=== PATIENT | female | born 1980 | race Caucasian/White ===

== ENCOUNTER 2017-05-20 15:21 | Emergency (ER) | payer SELFPAY ==
[2017-05-20 15:44] VITALS: BP 110/78
--- NOTE | 2017-05-20 16:23 | EDM.PDOC ---
ED HPI GENERAL MEDICAL PROBLEM - General Chief Complaint: Head Injury Stated Complaint: MEMORY LOSS, PRESSURE IN HEAD AFTER FALL FROM 05/13 Time Seen by Provider: 05/20/17 16:04 Source of Information: Reports: Patient, RN Notes Reviewed History Limitations: Reports: No Limitations - History of Present Illness INITIAL COMMENTS - FREE TEXT/NARRATIVE: 36-year-old female presents emergency department today following head trauma one week ago, she admits to alcohol consumption had fallen multiple times that evening hit her head on a barstool that she does not believe she had loss of consciousness but since the event happened she's had increasing head pressure and pain [id number] pain medications provided little relief for her does have nausea no vomiting does have history of Areli procedure Head Pain Score (Numeric/FACES): 6 - Related Data Allergies Allergy/AdvReac Type Severity Reaction Status Date / Time ketorolac tromethamine Allergy Severe Anaphylactic Verified 01/03/16 14:25 [From Toradol] Shock amoxicillin [Amoxicillin] Allergy Itching Verified 01/03/16 14:25 hydrocodone bitartrate Allergy Itching Verified 01/03/16 14:25 [From Vicodin] Home Meds: Home Meds NK [No Known Home Meds] 05/20/17 [History] Past Medical History HEENT History: Reports: Impaired Vision Gastrointestinal History: Reports: GERD 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: , Other (See Below) Other OB/BYN History: cervical cancer Neurological History: Reports: Concussion, Migraines Psychiatric History: Reports: Bipolar, Depression, Psych Hospitalization(s), Suicide Attempt, Other (See Below) Other Psychiatric History: borderline personality disorder, manic depression Oncologic (Cancer) History: Reports: Cervix - Past Surgical History Head Surgeries/Procedures: Reports: None HEENT Surgical History: Reports: Tonsillectomy GI Surgical History: Reports: Cholecystectomy, Areli Fundoplication Female Surgical History: Reports: Tubal Ligation, Other (See Below) Social & Family History - Family History HEENT: Reports: Otitis Media Other HEENT Family History: EAR TUBES Cardiac: Reports: None Respiratory: Reports: None GI: Reports: None : Reports: None OBGYN: Reports: None Musculoskeletal: Reports: None Neurological: Reports: None Psychiatric: Reports: None Endocrine/Metabolic: Reports: Diabetes, type II Hematologic: Reports: None Immunologic: Reports: None Oncologic: Reports: Breast, Other (See Below) Other Oncologic Family History: MLTIPLE MYELOMA - Tobacco Use Smoking Status *Q: Heavy Tobacco Smoker Years of Tobacco use: 25 Packs/Tins Daily: 0.5 Used Tobacco, but Quit: No Month Tobacco Last Used: JUNE Second Hand Smoke Exposure: Yes - Caffeine Use Caffeine Use: Reports: Coffee, Soda - Alcohol Use Days Per Week of Alcohol Use: 0 Number of Drinks Per Day: 4 Total Drinks Per Week: 0 - Recreational Drug Use Recreational Drug Use: No Drug Use in Last 12 Months: No Recreational Drug Type: Reports: Methamphetamine Recreational Drug Use Frequency: Not Used In Over 6 Months Recreational Drug Last Use: 2008 - Living Situation & Occupation Living situation: Reports: Single Occupation: Employed ED ROS GENERAL - Review of Systems Review Of Systems: See Below Constitutional: Reports: No Symptoms HEENT: Reports: No Symptoms Respiratory: Reports: No Symptoms Cardiovascular: Reports: No Symptoms GI/Abdominal: Reports: Nausea : Reports: No Symptoms Musculoskeletal: Reports: No Symptoms Skin: Reports: No Symptoms Neurological: Reports: Headache ED EXAM, HEAD INJURY - Physical Exam Exam: See Below Text/Narrative:: General: Female, not in any distress, alert and oriented x3 HEENT: head is atraumatic normocephalic, eyes pupils equal round reactive to light, sclera clear no conjunctivitis appreciated. Ears tympanic membranes clear and allen landmarks and light reflex are present bilaterally canals are clear. Nose no septal deviation, nares are clear, no blood present. Mouth mucosa is moist and pink no erythema or exudate noted in soft palate, tongue is midline uvula is midline, dentition is intact. Neck: Supple no thyromegaly no tracheal deviation. No tenderness spinally or paraspinally full range of motion without pain Nodes: Cervical nodes subclavicular nodes nontender no palpable lymphadenopathy noted. Lungs: clear to auscultation bilaterally with symmetrical respirations, no adventitious noise appreciated. CV: Regular rate and rhythm S1 and S2 appreciated no murmurs rubs or gallops noted. Abdomen: Soft, nontender, no palpable masses or organomegaly appreciated, no distention no guarding bowel sounds are present, . Neuro: Cranial nerves II through XII grossly intact, power is 5 out 5 in upper and lower extremities, patellar reflex, biceps reflex +2 can do finger to nose without difficulty no dysdiadochokinesis no difficulty with rapid alternating movements can do [id number] without difficulty Romberg is negative, has adequate gait can do heel to toe, can toe walk and heel walk no cerebellar dysfunction no focal neurologic deficit Skin: Warm and dry, intact Extremities: No lower extremity edema appreciated, Course - Vital Signs Last Recorded V/S: Last Vital Signs Temp 96.8 F 05/20/17 15:42 Pulse 73 05/20/17 15:42 Resp 16 05/20/17 15:42 BP 110/78 05/20/17 15:42 Pulse Ox 98 05/20/17 15:42 - Orders/Labs/Meds Orders: Active Orders 24 hr Category Date Time Status Head wo Cont [CT] Stat Exams 05/20/17 16:18 Taken Departure - Departure Time of Disposition: 17:40 Disposition: Home, Self-Care 01 Condition: Good Clinical Impression: Concussion Qualifiers: Encounter type: initial encounter Loss of consciousness presence/duration: with LOC of unspecified duration Qualified Code(s): S06.0X9A - Concussion with loss of consciousness of unspecified duration, initial encounter - Discharge Information Referrals: PCP,None [Primary Care Provider] - Forms: ED Department Discharge Additional Instructions: , Use tramadol as needed for pain control, physical therapy will call you set up appointment time at your convenience, Please followup with your primary care provider in 5-7 days if not better, please call return to the emergency department with worsening of symptoms. - My Orders Last 24 Hours: My Active Orders 05/20/17 16:18 Head wo Cont [CT] Stat - Assessment/Plan Last 24 Hours: My Active Orders 05/20/17 16:18 Head wo Cont [CT] Stat Plan: Assessment Acuity = acute Site and laterality = concussion syndrome Etiology = secondary to head trauma Manifestations = none Location of injury = Home Lab values = CT scan initially showed question of trace subdural however after discussion with the radiologist felt this was more likely artifact Plan I did review CT scan results with the patient felt her symptoms are more consistent with concussion syndrome therefore I wrote an order for physical therapy for evaluation and treatment, prescription written for tramadol 1 tablet by mouth 3 times a day when necessary total #20 follow-up with primary care 5-7 days if no improvement Patient was in agreement with the plan all questions were answered, they were instructed to return to the emergency department or call for worsening symptoms. This note was dictated using dragon voice recognition software please call with any questions.
== END 2017-05-20 17:50 | disposition home or self-care (01) ==
LOC: JP.ED 15:21
DX: S06.0X9A Concussion with loss of consciousness of unspecified duration, initial encounter (principal); K21.9 Gastro-esophageal reflux disease without esophagitis; F31.9 Bipolar disorder, unspecified; F17.210 Nicotine dependence, cigarettes, uncomplicated; Z88.1 Allergy status to other antibiotic agents; Z88.5 Allergy status to narcotic agent; Z88.6 Allergy status to analgesic agent; W01.190A Fall on same level from slipping, tripping and stumbling with subsequent striking against furniture, initial encounter
CPT/HCPCS: 70450; 99283; 99284-25

== ENCOUNTER 2018-11-30 14:23 | Emergency (ER) | payer SELFPAY ==
--- NOTE | 2018-11-30 15:21 | EDM.PDOC ---
ED HPI GENERAL MEDICAL PROBLEM - General Chief Complaint: Chest Pain Stated Complaint: CHEST PAINS, PRESURE, LEFT ARM PAIN AND NUMBNESS Time Seen by Provider: 11/30/18 14:40 Source of Information: Reports: Patient History Limitations: Reports: No Limitations - History of Present Illness INITIAL COMMENTS - FREE TEXT/NARRATIVE: 38-year-old female, otherwise healthy was going to bed last evening when she felt a fairly sudden onset of pain in her chest radiating through to her back. She was unable to breathe for a while because it was painful, but it slowly improved to the point where she went to sleep. This morning when she awoke she was still having some slight pressure and she felt "off". There was a persistent annoying pain in her chest that she took some ibuprofen, it didn't seem to help. This afternoon she felt like she wasn't thinking clearly, the chest pain started recurring and then her left hand went numb in her left leg felt weak, she then developed oral numbness in her lips on both sides. She then panicked and called someone to come in and take over work and came into the emergency room. She arrived very stable, normal vitals and sinus rhythm. Still some slight pressure, some slight weakness in her left leg and some slight numbness on her face and hand but she looks very calm. Her history is a year and a half ago she slipped on the ice and hit her head and sustained a head bleed, concussion and skull fracture according to the patient. Onset: Sudden (Chest pressure started suddenly last night about 16 hours ago) Associated Symptoms: Reports: Malaise. Denies: Fever/Chills, Headaches, Loss of Appetite Chest Pain Score (Numeric/FACES): 6 - Related Data Allergies Allergy/AdvReac Type Severity Reaction Status Date / Time ketorolac tromethamine Allergy Severe Anaphylactic Verified 11/30/18 14:46 [From Toradol] Shock amoxicillin [Amoxicillin] Allergy Itching Verified 11/30/18 14:46 hydrocodone bitartrate Allergy Itching Verified 11/30/18 14:46 [From Vicodin] Home Meds: Home Meds NK [No Known Home Meds] 05/20/17 [History] Past Medical History HEENT History: Reports: Impaired Vision Cardiovascular History: Reports: None Respiratory History: Reports: None Gastrointestinal History: Reports: GERD 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: , Other (See Below) 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 Musculoskeletal History: Reports: None Neurological History: Reports: Concussion, Migraines Psychiatric History: Reports: Bipolar, Depression, Psych Hospitalization(s), Suicide Attempt, Other (See Below) Other Psychiatric History: borderline personality disorder, manic depression Endocrine/Metabolic History: Reports: None Hematologic History: Reports: None Immunologic History: Reports: None Oncologic (Cancer) History: Reports: Cervix Dermatologic History: Reports: None - Past Surgical History HEENT Surgical History: Reports: Tonsillectomy GI Surgical History: Reports: Cholecystectomy, Areli Fundoplication Social & Family History - Family History HEENT: Reports: Otitis Media Other HEENT Family History: EAR TUBES Cardiac: Reports: None Respiratory: Reports: None GI: Reports: None : Reports: None OBGYN: Reports: None Musculoskeletal: Reports: None Neurological: Reports: None Psychiatric: Reports: None Endocrine/Metabolic: Reports: Diabetes, type II Hematologic: Reports: None Immunologic: Reports: None Oncologic: Reports: Breast, Other (See Below) Other Oncologic Family History: MLTIPLE MYELOMA - Tobacco Use Smoking Status *Q: Light Tobacco Smoker Years of Tobacco use: 30 Packs/Tins Daily: 0.5 - Caffeine Use Caffeine Use: Reports: Coffee, Soda - Recreational Drug Use Recreational Drug Use: No - Living Situation & Occupation Living situation: Reports: Single Occupation: Employed ED ROS GENERAL - Review of Systems Review Of Systems: See Below Constitutional: Reports: Malaise. Denies: Fever, Chills HEENT: Denies: Hearing Loss, Vision Change Respiratory: Reports: Pleuritic Chest Pain. Denies: Shortness of Breath Cardiovascular: Reports: Chest Pain. Denies: Palpitations GI/Abdominal: Denies: Abdominal Pain, Nausea, Vomiting : Reports: No Symptoms Musculoskeletal: Reports: No Symptoms Neurological: Reports: Paresthesia (Lips, left arm and left leg). Denies: Seizure, Syncope Psychiatric: Reports: Anxiety ED EXAM, GENERAL - Physical Exam Exam: See Below Exam Limited By: No Limitations General Appearance: Alert, No Apparent Distress, Other (Generally the patient appears grossly completely normal, EOMs intact, speech clear and not hyperventilating) Eye Exam: Bilateral Eye: Normal Inspection Throat/Mouth: Normal Inspection Head: Atraumatic Neck: Supple, Non-Tender Respiratory/Chest: No Respiratory Distress, Lungs Clear Cardiovascular: Regular Rate, Rhythm. No: Tachycardia GI/Abdominal: Soft Extremities: Other (Effort is questionable, but plantar flexion of the left foot is weaker compared to the right) Neurological: Sensory/Motor Deficit (Some objective weakness of plantar flexion of the left foot compared to the right, and a lack of coordination when grasping with the left hand compared to the right). No: Inattentive, Confused, Disoriented, Slow to Respond, Unresponsive Course - Vital Signs Last Recorded V/S: Last Vital Signs Temp 98 F 11/30/18 14:50 Pulse 65 11/30/18 15:44 Resp 20 11/30/18 15:44 BP 120/54 L 11/30/18 15:44 Pulse Ox 96 11/30/18 15:44 - Orders/Labs/Meds Labs: Laboratory Tests 11/30/18 11/30/18 Range/Units 13:10 13:10 WBC 8.0 (4.5-11.0) K/uL RBC 4.12 (3.30-5.50) M/uL Hgb 13.1 (12.0-15.0) g/dL Hct 39.3 (36.0-48.0) % MCV 95 (80-98) fL MCH 32 H (27-31) pg MCHC 33 (32-36) % Plt Count 195 (150-400) K/uL Neut % (Auto) 45 (36-66) % Lymph % (Auto) 44 (24-44) % Woods % (Auto) 7 H (2-6) % Eos % (Auto) 2 (2-4) % Baso % (Auto) 1 (0-1) % Sodium 140 (140-148) mmol/L Potassium 3.7 (3.6-5.2) mmol/L Chloride 107 (100-108) mmol/L Carbon Dioxide 25 (21-32) mmol/L Anion Gap 8.5 (5.0-14.0) mmol/L BUN 13 (7-18) mg/dL Creatinine 0.7 D (0.6-1.0) mg/dL Est Cr Clr Drug Dosing 95.13 mL/min Estimated GFR (MDRD) > 60 (>60) Glucose 95 (74-106) mg/dL Calcium 8.4 L (8.5-10.1) mg/dL Total Bilirubin 0.7 (0.2-1.0) mg/dL AST 17 (15-37) U/L ALT 26 (12-78) U/L Alkaline Phosphatase 79 (46-116) U/L Troponin I < 0.017 (0.000-0.056) ng/mL Total Protein 6.3 L (6.4-8.2) g/dL Albumin 3.1 L (3.4-5.0) g/dL Globulin 3.2 (2.3-3.5) g/dL Albumin/Globulin Ratio 1.0 L (1.2-2.2) TSH, Ultra Sensitive 1.923 (0.358-3.740) uIU/mL - Re-Assessments/Exams Free Text/Narrative Re-Assessment/Exam: 11/30/18 15:21 Reviewed the patient's records and was reassured that her initial CT scan from a urinary half ago showed no fracture and the questionable hemorrhage is likely artifact. An EKG was done which was normal. A CBC, CMP and TSH along with troponin were obtained, a 2 view chest x-ray and a head CT without contrast. 11/30/18 15:55 CBC CMP and TSH were all basically normal including a 0 troponin. Two-view chest x-ray was negative and CT of her head was negative. She did admit that she is currently going through a custody may with her for her kids so I think this is at least partially stress-induced or anxiety. She is going to take a day off work, increase activity as tolerated and recheck in 2-3 days if not improving satisfactorily. Departure - Departure Time of Disposition: 16:07 Disposition: Home, Self-Care 01 Clinical Impression: Atypical chest pain, Paresthesia of left upper and lower extremity - Discharge Information Instructions: Nonspecific Chest Pain, [id number] Referrals: PCP,None [Primary Care Provider] - Forms: ED Department Discharge Care Plan Goals: Rest the next 1-2 days and increase activity as tolerated. Return anytime if worsening or concerns, or consider rechecking in 2-3 days if not improving satisfactorily.
[2018-11-30 15:45] VITALS: BP 120/54
--- NOTE | 2018-11-30 16:36 | CRLCT ---
INDICATION: Left-sided weakness and paresthesias. TECHNIQUE: CT head without contrast. COMPARISON: Head CT 05/20/2017 FINDINGS: CSF spaces: Within normal limits for age. Brain parenchyma: The allen-white differentiation is normal. No sign of mass, hemorrhage, or midline shift. Skull base and calvarium: The visualized paranasal sinuses and mastoid air cells demonstrate no acute or significant findings. The visualized orbits are grossly unremarkable. No skull fractures. IMPRESSION: Unremarkable noncontrast head CT. Please note that all CT scans at this facility use dose modulation, iterative reconstruction, and/or weight-based dosing when appropriate to reduce radiation dose to as low as reasonably achievable. Dictated by Elton Anderson MD @ Nov 30 2018 4:32PM Signed by Dr. Elton Anderson @ Nov 30 2018 4:34PM
--- NOTE | 2018-11-30 16:53 | CRLCR ---
Indication: Dyspnea Technique: Chest 2 views Comparison: None Findings: Cardiovascular and mediastinum: Heart size and vasculature are normal in caliber and appearance. Lungs and pleural spaces: Lungs are clear. No sign of infiltrate or mass. No sign of pleural effusion. No pneumothorax. Bones and soft tissues: No significant findings. Impression: No acute or significant findings. Dictated by Elton Anderson MD @ Nov 30 2018 4:48PM Signed by Dr. Elton Anderson @ Nov 30 2018 4:50PM
== END 2018-11-30 16:07 | disposition home or self-care (01) ==
LOC: JP.ED 14:23
DX: R07.89 Other chest pain (principal); R20.2 Paresthesia of skin; F17.210 Nicotine dependence, cigarettes, uncomplicated; Z88.5 Allergy status to narcotic agent; Z88.1 Allergy status to other antibiotic agents
CPT/HCPCS: 36415; 70450; 71046; 80053; 84443; 84484; 85025; 93005; 93010; 99284; 99285-25

== ENCOUNTER 2020-09-04 23:47 | Emergency (ER) | payer SELFPAY ==
[2020-09-04 23:59] VITALS: BP 107/65; PULSE 63
--- NOTE | 2020-09-05 00:17 | EDM.PDOC ---
ED HPI GENERAL MEDICAL PROBLEM - General Chief Complaint: Lower Extremity Injury/Pain Stated Complaint: RIGHT FOOT PAIN Time Seen by Provider: 09/05/20 00:05 Source of Information: Reports: Patient, RN History Limitations: Reports: No Limitations - History of Present Illness INITIAL COMMENTS - FREE TEXT/NARRATIVE: 39 yo female presents with R lateral foot pain progressive over several weeks. Pain is worse with weight bearing. Has not been to the clinic. No injury recalled. Onset: Gradual Duration: Week(s):, Getting Worse Location: Reports: Lower Extremity, Right Quality: Reports: Ache Severity: Moderate Improves with: Reports: Rest Worsens with: Reports: Other (weight bearing) Context: Reports: Other (see HPI) Associated Symptoms: Reports: No Other Symptoms Treatments DIRECTOR COLLEGE: Reports: Other (see below) (none) Right Foot Pain Score (Numeric/FACES): 8 - Related Data Allergies Allergy/AdvReac Type Severity Reaction Status Date / Time ketorolac tromethamine Allergy Severe Anaphylactic Verified 09/05/20 00:00 [From Toradol] Shock amoxicillin [Amoxicillin] Allergy Itching Verified 11/30/18 14:46 hydrocodone bitartrate Allergy Itching Verified 11/30/18 14:46 [From Vicodin] Home Meds: Home Meds NK [No Known Home Meds] 05/20/17 [History] Past Medical History HEENT History: Reports: Impaired Vision Cardiovascular History: Reports: None Respiratory History: Reports: None Gastrointestinal History: Reports: GERD 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: , 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 (See Below) 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 Musculoskeletal History: Reports: Fracture Other Musculoskeletal History: toe fx Neurological History: Reports: Concussion, Migraines Psychiatric History: Reports: Bipolar, Depression, Psych Hospitalization(s), Suicide Attempt, Other (See Below) Other Psychiatric History: borderline personality disorder, manic depression Endocrine/Metabolic History: Reports: None Hematologic History: Reports: None Immunologic History: Reports: None Oncologic (Cancer) History: Reports: Cervix Dermatologic History: Reports: None - Past Surgical History HEENT Surgical History: Reports: Tonsillectomy GI Surgical History: Reports: Cholecystectomy, Areli Fundoplication Female Surgical History: Reports: Tubal Ligation, Other (See Below) Other Female Surgeries/Procedures: cervical cancer Social & Family History - Family History HEENT: Reports: Otitis Media Other HEENT Family History: EAR TUBES Cardiac: Reports: None Respiratory: Reports: None GI: Reports: None : Reports: None OBGYN: Reports: None Musculoskeletal: Reports: None Neurological: Reports: None Psychiatric: Reports: None Endocrine/Metabolic: Reports: Diabetes, type II Hematologic: Reports: None Immunologic: Reports: None Oncologic: Reports: Breast, Other (See Below) Other Oncologic Family History: MLTIPLE MYELOMA - Tobacco Use Tobacco Use Status *Q: Current Every Day Tobacco User Years of Tobacco use: 25 Packs/Tins Daily: 0.5 Used Tobacco, but Quit: No Second Hand Smoke Exposure: Yes - Caffeine Use Caffeine Use: Reports: Coffee, Soda - Recreational Drug Use Recreational Drug Use: No - Living Situation & Occupation Living situation: Reports: Single Occupation: Employed Review of Systems - Review of Systems Review Of Systems: See Below Constitutional: Reports: No Symptoms Eyes: Reports: No Symptoms Musculoskeletal: Reports: Foot Pain (R lateral) Skin: Reports: No Symptoms Neurological: Reports: No Symptoms ED EXAM, GENERAL - Physical Exam Exam: See Below Exam Limited By: No Limitations General Appearance: Alert, WD/WN, No Apparent Distress Extremities: Normal Inspection, Normal Range of Motion, No Pedal Edema. No: Non-Tender (tender laterally), Pedal Edema, Limited Range of Motion, Increased Warmth, Redness Neurological: Alert, Oriented, CN II-XII Intact, Normal Cognition, No Motor/Sensory Deficits Psychiatric: Normal Affect, Normal Mood Skin Exam: Warm, Dry, Intact, Normal Color, No Rash Course - Vital Signs Last Recorded V/S: Last Vital Signs Temp 36.3 C 09/04/20 23:58 Pulse 63 09/04/20 23:58 Resp 16 09/04/20 23:58 BP 107/65 09/04/20 23:58 Pulse Ox 97 09/04/20 23:58 - Orders/Labs/Meds Orders: Active Orders 24 hr Category Date Time Status Foot Comp Min 3V Rt [CR] Stat Exams 09/05/20 00:13 Ordered - Radiology Interpretation Free Text/Narrative:: R foot X-ray-neg Departure - Departure Time of Disposition: 00:40 Disposition: Home, Self-Care 01 Condition: Fair Clinical Impression: Right foot pain - Discharge Information *PRESCRIPTION DRUG MONITORING PROGRAM REVIEWED*: No *COPY OF PRESCRIPTION DRUG MONITORING REPORT IN PATIENT QUINTIN: No Instructions: Foot Pain Referrals: PCP,None [Primary Care Provider] - Forms: ED Department Discharge Additional Instructions: Stay off the right foot as much as possible. F/U with podiatry for definitive treatment. Sepsis Event Note (ED) - Evaluation Sepsis Screening Result: No Definite Risk - Focused Exam Vital Signs: Vital Signs Temp Pulse Resp BP Pulse Ox 09/04/20 23:58 36.3 C 63 16 107/65 97 - My Orders Last 24 Hours: My Active Orders 09/05/20 00:13 Foot Comp Min 3V Rt [CR] Stat - Assessment/Plan Last 24 Hours: My Active Orders 09/05/20 00:13 Foot Comp Min 3V Rt [CR] Stat
--- NOTE | 2020-09-05 09:03 | CR ---
FOOT RIGHT 3 views CLINICAL HISTORY:Right lateral foot pain FINDINGS:There is a longitudinal regular lucency and mild cortical irregularity at the base of the fifth metatarsal. This is likely related to secondary ossification center but the patient does have right lateral foot pain. IMPRESSION: Deformity at the base of the fifth metatarsal is most likely secondary ossification center but the patient does have lateral foot pain. If clinical symptomatology persists or worsens a repeat exam is recommended.
== END 2020-09-05 00:47 | disposition home or self-care (01) ==
LOC: JP.ED 23:47
DX: M79.671 Pain in right foot (principal); Z72.0 Tobacco use; Z88.5 Allergy status to narcotic agent; Z88.0 Allergy status to penicillin
CPT/HCPCS: 73630-26-RT; 73630-RT; 99282; 99283

== ENCOUNTER 2021-06-08 15:54 | Emergency (ER) | payer MEDICAID ==
[2021-06-08 16:12] VITALS: BP 107/68; PULSE 80
--- NOTE | 2021-06-08 16:27 | EDM.PDOC ---
ED HPI GENERAL MEDICAL PROBLEM - General Chief Complaint: Lower Extremity Injury/Pain Stated Complaint: POST SURGICAL BLEEDING-R ANKLE Time Seen by Provider: 06/08/21 16:05 Source of Information: Reports: Patient, RN History Limitations: Reports: No Limitations - History of Present Illness INITIAL COMMENTS - FREE TEXT/NARRATIVE: 40 yo female had R ankle surgery yesterday in [place] by an orthopedic surgeon. Today she had bloody drainage from the wound medially and laterally that she thought was more than what she was expecting. She called [place] and no one was there to answer the phone. Eventually someone advised her to come to the ER. 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) (none) Right Ankle Pain Score (Numeric/FACES): 7 - Related Data Allergies Allergy/AdvReac Type Severity Reaction Status Date / Time ketorolac tromethamine Allergy Severe Anaphylactic Verified 06/08/21 16:13 [From Toradol] Shock amoxicillin [Amoxicillin] Allergy Itching Verified 06/08/21 16:13 hydrocodone bitartrate Allergy Itching Verified 06/08/21 16:13 [From Vicodin] tramadol Allergy Vomiting Verified 06/08/21 16:17 Home Meds: Home Meds HYDROmorphone [Dilaudid] 2 mg PO Q6HR PRN 06/08/21 [History] Past Medical History HEENT History: Reports: Impaired Vision Cardiovascular History: Reports: None Respiratory History: Reports: None Gastrointestinal History: Reports: GERD 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: , Other (See Below) Other DOCUMENT MANAGEMENT ANALYST History: cervical cancer Musculoskeletal History: Reports: Fracture Other Musculoskeletal History: toe fx Neurological History: Reports: Concussion, Migraines Psychiatric History: Reports: Bipolar, Depression, Psych Hospitalization(s), Suicide Attempt, Other (See Below) Other Psychiatric History: borderline personality disorder, manic depression Endocrine/Metabolic History: Reports: None Hematologic History: Reports: None Immunologic History: Reports: None Oncologic (Cancer) History: Reports: Cervix Dermatologic History: Reports: None - Past Surgical History HEENT Surgical History: Reports: Tonsillectomy GI Surgical History: Reports: Cholecystectomy, Areli Fundoplication Female Surgical History: Reports: Tubal Ligation, Other (See Below) Other Female Surgeries/Procedures: cervical cancer Social & Family History - Family History HEENT: Reports: Otitis Media Other HEENT Family History: EAR TUBES Cardiac: Reports: None Respiratory: Reports: None GI: Reports: None : Reports: None OBGYN: Reports: None Musculoskeletal: Reports: None Neurological: Reports: None Psychiatric: Reports: None Endocrine/Metabolic: Reports: Diabetes, type II Hematologic: Reports: None Immunologic: Reports: None Oncologic: Reports: Breast, Other (See Below) Other Oncologic Family History: MLTIPLE MYELOMA - Tobacco Use Tobacco Use Status *Q: Current Every Day Tobacco User Years of Tobacco use: 30 Packs/Tins Daily: 0.5 - Caffeine Use Caffeine Use: Reports: Coffee - Recreational Drug Use Recreational Drug Use: No - Living Situation & Occupation Living situation: Reports: Single Occupation: Employed Review of Systems - Review of Systems Review Of Systems: See Below Constitutional: Reports: No Symptoms Musculoskeletal: Reports: Foot Pain (R ankle bloody drainage) Skin: Reports: Wound (surgical R medial and lateral ankle) Neurological: Reports: No Symptoms ED EXAM, GENERAL - Physical Exam Exam: See Below Exam Limited By: No Limitations General Appearance: Alert, WD/WN, No Apparent Distress Extremities: Normal Inspection, Other (Dressing removed revealing normal uninfected post-op wounds with no continued bleeding. ) Neurological: Alert, Oriented, CN II-XII Intact, Normal Cognition, No Motor/Sensory Deficits Psychiatric: Normal Affect, Normal Mood Skin Exam: Warm, Dry, Normal Color, No Rash, Wound/Incision (surgical). No: Intact, Ecchymosis, Erythema, Increased Warmth, Lymphangitis Course - Vital Signs Last Recorded V/S: Last Vital Signs Temp 36.6 C 06/08/21 16:10 Pulse 80 06/08/21 16:10 Resp 16 06/08/21 16:10 BP 107/68 06/08/21 16:10 Pulse Ox 98 06/08/21 16:10 - Re-Assessments/Exams Free Text/Narrative Re-Assessment/Exam: 06/08/21 16:25 dressing changed in the ER. Departure - Departure Time of Disposition: 16:35 Disposition: Home, Self-Care 01 Condition: Good Clinical Impression: Visit for wound check - Discharge Information *PRESCRIPTION DRUG MONITORING PROGRAM REVIEWED*: Not Applicable *COPY OF PRESCRIPTION DRUG MONITORING REPORT IN PATIENT QUINTIN: Not Applicable Referrals: PCP,None [Primary Care Provider] - Additional Instructions: Continue with all the cares advised previously by your surgeon. Recheck for fever or continued excessive drainage or as previously directed. Sepsis Event Note (ED) - Focused Exam Vital Signs: Vital Signs Temp Pulse Resp BP Pulse Ox 06/08/21 16:10 36.6 C 80 16 107/68 98
== END 2021-06-08 16:33 | disposition home or self-care (01) ==
LOC: JP.ED 15:54
DX: Z48.01 Encounter for change or removal of surgical wound dressing (principal); F17.210 Nicotine dependence, cigarettes, uncomplicated; Z88.0 Allergy status to penicillin; Z88.8 Allergy status to other drugs, medicaments and biological substances
CPT/HCPCS: 99282

== ENCOUNTER 2023-06-16 15:15 | Emergency (ER) | payer MEDICAID ==
[2023-06-16 16:29] LABS: CORONAVIRUS COVID-19 NAA NEGATIVE (NEGATIVE); INFLUENZA A NAA NEGATIVE (NEGATIVE); INFLUENZA B NAA NEGATIVE (NEGATIVE); RESPIRATORY SYNCYTIAL VIR NAA NEGATIVE (NEGATIVE)
[2023-06-16] MEDS ORDERED: Albuterol/Ipratropium 3.0-0.5 MG/3 ML Neb Soln NEB ONE (17:57)
[2023-06-16 18:08] LABS: BASOPHILS PERCENT AUTO 0.5 % (0.1-1.3); EOSINOPHILS PERCENT AUTO 2.3 % (0.0-5.4); HEMOGLOBIN 14.6 g/dL (11.2-15.5); IMMATURE GRAN ABSOLUTE AUTO 0.07 K/uL (0.00-0.23); IMMATURE GRAN PERCENT AUTO 1.6 % (0.0-0.7); LYMPHOCYTES ABSOLUTE AUTO 2.02 K/uL (0.8-3.3); LYMPHOCYTES PERCENT AUTO 45.5 % (11.4-47.7); MEAN CORPUSCULAR HGB CONC 33.2 g/dL (31.6-35.5); MEAN CORPUSCULAR VOLUME 96.5 fL (81.4-99.0); MONOCYTES ABSOLUTE AUTO 0.39 K/uL (0.20-0.90); MONOCYTES PERCENT AUTO 8.8 % (3.3-12.6); NEUTROPHILS ABSOLUTE AUTO 1.84 K/uL (1.0-7.6); NEUTROPHILS PERCENT AUTO 41.3 % (40.0-78.1); PLATELET COUNT,PLT 156 K/uL (130-375); RED BLOOD CELL COUNT 4.56 M/uL (3.77-5.24); WHITE BLOOD CELL COUNT,WBC 4.4 K/uL (3.2-11.0)
[2023-06-16 18:11] LABS: BASOPHILS ABSOLUTE AUTO 0.02 K/uL (0.00-0.10)
[2023-06-16 18:33] LABS: ALANINE AMINOTRANSFERASE,ALT 79 U/L (12-78); ALBUMIN 3.4 g/dL (3.4-5.0); ALKALINE PHOSPHATASE 137 U/L (46-116); ANION GAP 11.1 mmol/L (5.0-14.0); ASPARTATE AMNIOTRANSFERASE,AST 43 U/L (15-37); BILIRUBIN TOTAL 0.4 mg/dL (0.2-1.0); BLOOD UREA NITROGEN,BUN 8 mg/dL (7-18); CARBON DIOXIDE,CO2 27 mmol/L (21-32); CHLORIDE,CL 103 mmol/L (100-108); CREATININE 0.7 mg/dL (0.6-1.0); EST CRCL DRUG DOSING (CG) 89.48 mL/min; ESTIMATED GFR 110 mL/min (>60); GLUCOSE RANDOM 85 mg/dL (74-106); POTASSIUM,K 4.1 mmol/L (3.6-5.2); PROTEIN TOTAL,TP 6.8 g/dL (6.4-8.2); SODIUM,NA 137 mmol/L (140-148); TROPONIN I HIGH SENSITIVITY 6.9 pg/mL (<=60.3)
[2023-06-16] MEDS ORDERED: Sodium Chloride 0.9% 10 ML Syringe FLUSH PRN (19:04)
[2023-06-16] MEDS ORDERED: Sodium Chloride 0.9% 100 ML IV SCH (19:15)
[2023-06-16] MEDS ORDERED: Sodium Chloride 0.9% 1,000 ML IV SCH (19:15)
[2023-06-16] MEDS ORDERED: Iopamidol 755 Mg/ML 100 ML Bottle IV SCH (19:15)
[2023-06-16 20:11] VITALS: BP 140/41; PULSE 62
[2023-06-16] MEDS ORDERED: Ibuprofen 600 MG Tab PO ONE (21:11)
== END 2023-06-16 22:07 | disposition home or self-care (01) ==
LOC: JP.ED 15:15
DX: J20.8 Acute bronchitis due to other specified organisms (principal); F17.210 Nicotine dependence, cigarettes, uncomplicated; Z20.822 Contact with and (suspected) exposure to COVID-19; Z88.0 Allergy status to penicillin; Z88.1 Allergy status to other antibiotic agents; Z88.5 Allergy status to narcotic agent; Z88.6 Allergy status to analgesic agent
CPT/HCPCS: 0241U; 36415; 71046; 71275; 80053; 83605; 84484; 85025; 85379; 93005; 94640; 99285; A9270; J3490; J7030; Q9967; J7620

== ENCOUNTER 2024-03-06 19:53 | Emergency (ER) | payer SELFPAY ==
[2024-03-06 20:26] VITALS: BP 110/65; PULSE 66
[2024-03-06] MEDS: Doxycycline 100 MG Cap PO ONE (20:35)
== END 2024-03-06 20:40 | disposition home or self-care (01) ==
LOC: JP.ED 19:53
DX: S30.860A Insect bite (nonvenomous) of lower back and pelvis, initial encounter (principal); Z90.49 Acquired absence of other specified parts of digestive tract; Z88.1 Allergy status to other antibiotic agents; Z88.0 Allergy status to penicillin; Z88.5 Allergy status to narcotic agent; W57.XXXA Bitten or stung by nonvenomous insect and other nonvenomous arthropods, initial encounter
CPT/HCPCS: 99281; A9270